=== PATIENT | male | born 1995 | race Caucasian/White ===

== ENCOUNTER 2018-03-13 14:33 | Emergency (ER) | payer BC ==
[~2018-03-13] VITALS: Ht 170.2 cm; Wt 51.4 kg
[2018-03-13 14:43] VITALS: TEMP 36.9; Ht 170.2 cm; Wt 51.4 kg
[2018-03-13 15:00] VITALS: O2SAT 96
[2018-03-13] MEDS ORDERED: SODIUM CHLORIDE 0.9% 1000ML 1,000 ML IV ONE ×2 (15:00→16:00)
[2018-03-13] MEDS ORDERED: LORAZEPAM 2 MG/ML 1 ML VIAL IV PRN (15:00)
[2018-03-13 15:06] LABS: BASO % 0.4 %; BASO ABS # 0.05 K/uL (0-0.2); EOS % 0.3 %; EOS ABS # 0.04 K/uL (0-0.5); HEMATOCRIT 51.5 % (42-52); HEMOGLOBIN 17.3 g/dL (14.0-18.0); IG# 0.09 K/uL (0.00-0.02); LYMPH % 31.3 %; LYMPH ABS # 3.71 K/uL (1.2-3.4); MEAN CORPUSCULAR HEMOGLOBIN 31.2 pg (25-34); MEAN CORPUSCULAR HGB CONC 33.6 g/dl (32-36); MEAN PLATELET VOLUME 10.6 fL (7.4-10.4); MONO ABS # 1.07 K/uL (0.11-0.59); NEUT % 58.2 %; NEUT ABS # 6.88 K/uL (1.4-6.5); PLATELET COUNT 328 K/uL (130-400); RED CELL DISTRIBUTION WIDTH CV 12.9 % (11.5-14.5); RED CELL DISTRIBUTION WIDTH SD 43.8 fL (36.4-46.3); WHITE BLOOD COUNT 11.84 K/uL (4.8-10.8)
[2018-03-13] MEDS ORDERED: AMPH20TA2 PO (15:10)
[2018-03-13] MEDS ORDERED: ALPR1TAB3 PO (15:10)
[2018-03-13 15:16] LABS: PTT PATIENT 24.4 SECONDS (21.0-31.0)
--- NOTE | 2018-03-13 15:34 | DIAGNOSTIC IMAGING REPORT ---
CT OF THE HEAD WITHOUT CONTRAST CLINICAL HISTORY: SEIZURE COMPARISON STUDY: Head CT August 21, 2016. CT DOSE: 729.78 mGycm TECHNIQUE: Helical axial images of the head were obtained without IV contrast. Automated exposure control was utilized for the study. A dose lowering technique was utilized adhering to the principles of ALARA. FINDINGS: No acute intracranial hemorrhage, midline shift or mass effect is present. Brain findings normal. The ventricular system is normal. Basilar cisterns are patent. There are no extra-axial collections. Leary-white differentiation is maintained. There are no findings to suggest acute dural sinus thrombosis or acute territorial infarct. There are no calvarial fractures. Visualized portions of the sinuses and mastoid air cells are clear. IMPRESSION: No acute intracranial findings. Electronically signed by: Frederic Delgadillo M.D. 03/13/2018 3:24 PM Dictated Date/Time: 03/13/2018 3:22 PM
[2018-03-13 15:37] LABS: ALBUMIN 4.9 gm/dl (3.4-5.0); CALCIUM 9.7 mg/dl (8.5-10.1); CREATININE 1.54 mg/dl (0.60-1.40); POTASSIUM 3.6 mmol/L (3.5-5.1)
[2018-03-13 17:35] VITALS: BP 142/58; PULSE 112; O2SAT 98
--- NOTE | 2018-03-13 22:59 | EMERGENCY ROOM VISIT NOTE ---
History First contact with patient: 14:36 Chief Complaint: SEIZURE Stated Complaint: SEIZURES Nursing Triage Summary: pt was at [employer] during intense part of film pt started having seizure. friends thought pt was yawning and then he seen him foaming at the mouth. last approx 1 min then a few seconds went by started seizing again. pt was not incontinent of bowel or bladder. no known hx of seizures. c/o head pain pt unsure of location History of Present Illness The patient is a 23 year old male who presents to the Emergency Room with complaints of acute onset seizure activity that occurred approximately 30 minutes prior to arrival. The patient was watching a movie at a movie theater when symptoms began. The patient's friend witnessed the episode and noticed the patient foaming at the mouth and shaking uncontrollably. The patient was evidently not responsive. The patient's friend alerted other patrons of the movie theater, and evidently 2 of the patrons were registered nurses. The nurses did reposition the patient and help prevent an aspiration event until EMS arrived. EMS states the patient was post ictal and would only respond to painful stimuli. The patient has never had episodes like this in the past. He did not bite his tongue. No pain of his extremities. He is complaining of minor headache symptoms anteriorly, and is unsure if he struck his head. The patient did not urinate himself and is not complaining of numbness or paresthesias. The patient is a college student and has been drinking off and on the past week. He evidently has prescriptions for Adderall and Xanax, although he is not taking his Adderall. The patient admits to daily marijuana usage, but denies other drugs. He rates his current discomfort a 5/10. He recalls watching the beginning of the movie and then waking up in the ambulance just before arriving here in the emergency department. Review of Systems More than 10 systems were reviewed and otherwise negative with the exception of history of present illness. Past Medical/Surgical History ADHD Family History No pertinent family history Social History Smoking Status: Current Every Day Smoker Alcohol Use: occasionally Drug Use: marijuana Marital Status: single Housing Status: lives with roommate Occupation Status: [employer] student Current/Historical Medications Scheduled Alprazolam (Xanax), 0.5 MG PO PRN UD Scheduled PRN Amphetamine-Dextroamphetamine 20MG (Adderall 20MG), 20 MG PO DAILY PRN for Physical Exam Vital Signs Date Time Temp Pulse Resp B/P (MAP) Pulse Ox O2 Delivery O2 Flow Rate FiO2 03/13/18 17:35 112 20 142/58 98 Room Air 03/13/18 16:43 99 18 136/73 98 Room Air 03/13/18 16:17 106 03/13/18 15:56 102 18 139/77 99 Room Air 03/13/18 15:00 96 Room Air 03/13/18 14:43 36.9 124 18 157/99 98 Room Air Physical Exam VITALS: Vitals are noted on the nurse's note and reviewed by myself. Vital signs with tachycardia GENERAL: Well-developed, well-nourished, white male, who is in no acute distress and resting comfortably. Patient is cooperative with the examination. HEAD: Normocephalic atraumatic. EARS: External ear normal. External auditory canals clear, tympanic membranes pearly leary without erythema or effusion bilaterally. EYES: Pupils equal round and reactive to light and accommodation. Conjunctivae without injection, sclerae without icterus. Extraocular movements intact. NOSE: Patent, turbinates without inflammation or discharge. MOUTH: Mucous membranes moist. Tonsils are not enlarged. Pharynx without erythema, blood, or exudate. Uvula midline. Airway patent. No tongue or dental injury noted. NECK: Supple without nuchal rigidity. No lymphadenopathy. No thyromegaly. Cervical spine is nontender. HEART: Regular rate and rhythm without murmurs gallops or rubs. LUNGS: Clear to auscultation bilaterally without wheezes, rales or rhonchi. No retractions or accessory muscle use. ABDOMEN: Positive normal bowel sounds x 4. Soft, nontender, without masses or organomegaly. No guarding or rebound tenderness. MUSCULOSKELETAL: No muscle atrophy, erythema, or edema noted. Full range of motion in all extremities. No tenderness to palpation. Normal gait. Strength 5/5 throughout. NEURO: Patient was alert and oriented to person place and time. CN II through XII grossly intact. No focal neurological deficits. Deep tendon reflexes 2+ throughout. GCS 15. SKIN: The skin was without rashes, erythema, edema, or bruising. Capillary refill less than 2 seconds. Medical Decision & Procedures ER Provider Diagnostic Interpretation: CT OF THE HEAD WITHOUT CONTRAST CLINICAL HISTORY: SEIZURE COMPARISON STUDY: Head CT August 21, 2016. CT DOSE: 729.78 mGycm TECHNIQUE: Helical axial images of the head were obtained without IV contrast. Automated exposure control was utilized for the study. A dose lowering technique was utilized adhering to the principles of ALARA. FINDINGS: No acute intracranial hemorrhage, midline shift or mass effect is present. Brain findings normal. The ventricular system is normal. Basilar cisterns are patent. There are no extra-axial collections. Leary-white differentiation is maintained. There are no findings to suggest acute dural sinus thrombosis or acute territorial infarct. There are no calvarial fractures. Visualized portions of the sinuses and mastoid air cells are clear. IMPRESSION: No acute intracranial findings. Laboratory Results 03/13/18 14:15 Red Blood Count 5.54, Mean Corpuscular Volume 93.0, Mean Corpuscular Hemoglobin 31.2, Mean Corpuscular Hemoglobin Concent 33.6, Mean Platelet Volume 10.6, Neutrophils (%) (Auto) 58.2, Lymphocytes (%) (Auto) 31.3, Monocytes (%) (Auto) 9.0, Eosinophils (%) (Auto) 0.3, Basophils (%) (Auto) 0.4, Neutrophils # (Auto) 6.88, Lymphocytes # (Auto) 3.71, Monocytes # (Auto) 1.07, Eosinophils # (Auto) 0.04, Basophils # (Auto) 0.05 03/13/18 14:15 Test 03/13/18 14:15 03/13/18 15:57 White Blood Count 11.84 K/uL (4.8-10.8) Red Blood Count 5.54 M/uL (4.7-6.1) Hemoglobin 17.3 g/dL (14.0-18.0) Hematocrit 51.5 % (42-52) Mean Corpuscular Volume 93.0 fL (80-100) Mean Corpuscular Hemoglobin 31.2 pg (25-34) Mean Corpuscular Hemoglobin Concent 33.6 g/dl (32-36) Platelet Count 328 K/uL (130-400) Mean Platelet Volume 10.6 fL (7.4-10.4) Neutrophils (%) (Auto) 58.2 % Lymphocytes (%) (Auto) 31.3 % Monocytes (%) (Auto) 9.0 % Eosinophils (%) (Auto) 0.3 % Basophils (%) (Auto) 0.4 % Neutrophils # (Auto) 6.88 K/uL (1.4-6.5) Lymphocytes # (Auto) 3.71 K/uL (1.2-3.4) Monocytes # (Auto) 1.07 K/uL (0.11-0.59) Eosinophils # (Auto) 0.04 K/uL (0-0.5) Basophils # (Auto) 0.05 K/uL (0-0.2) RDW Standard Deviation 43.8 fL (36.4-46.3) RDW Coefficient of Variation 12.9 % (11.5-14.5) Immature Granulocyte % (Auto) 0.8 % Immature Granulocyte # (Auto) 0.09 K/uL (0.00-0.02) Prothrombin Time 10.3 SECONDS (9.0-12.0) Prothromb Time International Ratio 1.0 (0.9-1.1) Activated Partial Thromboplast Time 24.4 SECONDS (21.0-31.0) Partial Thromboplastin Ratio 0.9 Anion Gap 21.0 mmol/L (3-11) Est Creatinine Clear Calc Drug Dose 54.7 ml/min Estimated GFR () 73.1 Estimated GFR (Non- 63.1 BUN/Creatinine Ratio 10.1 (10-20) Calcium Level 9.7 mg/dl (8.5-10.1) Magnesium Level 2.5 mg/dl (1.8-2.4) Total Bilirubin 0.9 mg/dl (0.2-1) Aspartate Amino Transf (AST/SGOT) 21 U/L (15-37) Alanine Aminotransferase (ALT/SGPT) 25 U/L (12-78) Alkaline Phosphatase 86 U/L (45-117) Total Protein 9.0 gm/dl (6.4-8.2) Albumin 4.9 gm/dl (3.4-5.0) Globulin 4.0 gm/dl (2.5-4.0) Albumin/Globulin Ratio 1.2 (0.9-2) Thyroid Stimulating Hormone (TSH) 2.020 uIu/ml (0.300-4.500) Urine Color YELLOW Urine Appearance CLEAR (CLEAR) Urine pH 5.5 (4.5-7.5) Urine Specific Crosby 1.021 (1.000-1.030) Urine Protein 1+ (NEG) Urine Glucose (UA) NEG (NEG) Urine Ketones NEG (NEG) Urine Occult Blood TRACE (NEG) Urine Nitrite NEG (NEG) Urine Bilirubin NEG (NEG) Urine Urobilinogen NEG (NEG) Urine Leukocyte Esterase NEG (NEG) Urine WBC (Auto) 1-5 /hpf (0-5) Urine RBC (Auto) 0-4 /hpf (0-4) Urine Hyaline Casts (Auto) 1-5 /lpf (0-5) Urine Epithelial Cells (Auto) 0-5 /lpf (0-5) Urine Bacteria (Auto) NEG (NEG) Urine Opiates Screen NEG (NEG) Urine Methadone, Qualitative NEG (NEG) Urine Barbiturates NEG (NEG) Urine Phencyclidine (PCP) Level NEG (NEG) Ur Amphetamine/Methamphetamine NEG (NEG) MDMA (Ecstasy) Screen NEG (NEG) Urine Benzodiazepines Screen POS (NEG) Urine Cocaine Metabolite NEG (NEG) Urine Marijuana (THC) POS (NEG) Medications Administered Medications (Trade) Dose Ordered Sig/Dimple Route Start Time Stop Time Status Last Admin Dose Admin Sodium Chloride 1,000 ml @ 999 mls/hr Q1H1M ONCE IV 03/13/18 15:00 03/13/18 16:00 DC 03/13/18 15:09 999 MLS/HR Sodium Chloride 1,000 ml @ 999 mls/hr Q1H1M ONCE IV 03/13/18 16:00 03/13/18 17:00 DC 03/13/18 16:42 999 MLS/HR ED Course Physical exam and history were performed. Nursing notes, EMR, and Medication List were personally reviewed. Patient appears to have suffered a new onset first-time seizure today, and he was cared for under seizure precautions. IV access was established and labs were obtained. The patient was hydrated with [address] scan of the head was performed. The patient was placed on the telemetry monitor. The patient's blood work is as above and was reviewed. He does have a very minimally elevated white blood cell count, but no significant anemia, or gross electrolyte imbalance. He appears mildly dehydrated with a creatinine of 1.54. His urine was without evidence of infection. Drug of abuse screen was positive for marijuana and Xanax. It was not positive for Adderall, although this is prescribed for him and he gets this filled on a monthly basis. The patient's CT scan is as above and does not show evidence of acute intracranial process. 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 There is also concern for recreational drug use and potential alcoholism. I had a lengthy discussion with the patient regarding this information, who does not wish for rehabilitation or mental health services at this time. His seizure today was likely triggered by these medications/substances, and should he continue to abuse them he would likely have recurrent seizures. The patient was very dismissive of this information. I do have concern with the patient's well-being, and explained to him that as he had a seizure he would have to follow with neurology either locally or back home near [place] where he is from. I did offer to speak with his parents , but he declined. 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 I explained the significance of this to the patient, and he was thoroughly educated not to drive a vehicle until cleared by neurology. Overall the patient appears without significant findings, and is felt to be stable for discharge home. He will need to follow with neurology and I did give him information for this locally. The patient was discharged home under the care of his friends who are acting as a recycling collections driver. It was brought to my attention at the end of his visit that the patient discarded his discharge instructions prior to leaving the hospital. The chart was completed utilizing [employer] Speech Voice Recognition Software. Grammatical errors, random word insertions, pronoun errors, and incomplete sentences are an occasional consequence of this system due to software limitations, ambient noise, and hardware issues. Any formal questions or concerns about the content, text, or information contained within the body of this dictation should be directly addressed to the provider for clarification. . Medical Decision Differential diagnosis: Etiologies such as Polypharmacologic drug abuse, dehydration, infection, hypoglycemia, electrolyte abnormalities, cardiac sources, intracerebral event, trauma, toxicologic, neurologic, as well as others were entertained. Impression Primary Impression: Seizure Additional Impressions: Marijuana use Poly-drug misuser Departure Information Dispostion Home / Self-Care Condition GOOD Referrals Kaylan Sawant M.D. Forms HOME CARE DOCUMENTATION FORM, IMPORTANT VISIT INFORMATION Patient Instructions My [facility] Additional Instructions You were seen and evaluated today on an emergency basis only. This is not a substitute for, or an effort to provide, complete comprehensive medical care. It is not possible to recognize and treat all injuries or illnesses in a single emergency department visit. For this reason it is recommended that you followup with Neurology as soon as reasonably possible for ongoing care and evaluation. You may wish to do this at home. As a convenience we have provided you the information for local neurology, Dr. Sawant. Do not drive a vehicle or operate heavy machinery until you are cleared by a neurologist. We are mandatory reporters and have had to file a DL 13 with the [place] [employer]. Avoid substances that may trigger seizures. These include alcohol, marijuana, stimulants, and other similar products. You are welcome to return to the emergency department anytime with new, worsening, or concerning symptoms. Problem Qualifiers
== END 2018-03-13 18:03 | disposition home or self-care (01) ==
LOC: EDBD 14:33 → C.EDC 14:34
DX: R56.9 Unspecified convulsions (principal); F12.90 Cannabis use, unspecified, uncomplicated; F19.90 Other psychoactive substance use, unspecified, uncomplicated; F17.210 Nicotine dependence, cigarettes, uncomplicated